=== PATIENT | female | born 1960 | race Caucasian/White ===

== ENCOUNTER 2017-10-31 13:26 | Inpatient (IN) | payer MEDICARE, MEDICAID ==
[2017-10-31] VITALS (33 sets, daily range): BP systolic 92–127; BP diastolic 51–78
[~2017-10-31] VITALS: Ht 154.9 cm; Wt 114.0 kg
[~2017-10-31 13:26] MED LIST: ASPIRIN81 MG PO; BENICAR HCT1 TA1 OR; BENICAR HCT1 TA1 PO; BENICAR40 MG OR; BENICAR40 MG PO; BP MED; CEPHALEXIN500 MG PO; CHOLESTEROL MED; COMBIVENT IN; CRESTOR10 MG PO; CRESTOR5 MG OR; CRESTOR5 MG PO; HEART MED; HYDROCHLOROT12.5 MG PO; LOPRESSOR25 MG PO; MELOXICAM7.5 MG PO; METOPROL TAR25 M1 OR; METOPROLOL PO; NAPROSYN500 MG OR; NAPROXEN500 MG OR; NITROGLYCER0.4 MG SL; NYSTATIN100000 M4 TOP; ORPHENADRINE C100 M1 PO; PERCOCET 5/325M1 TAB PO; POTASSIUM GLUC595 MG PO; PROVENTIL HFA INH; TESSALON PER100 MG PO; ULTRAM50 MG PO
--- NOTE | 2017-10-31 13:46 | NUR ---
PT REPORTS RAPID HEART RATE AND SOB STARTING AT 1210. PT AMBULATED TO ROOM 8 WITH A STEADY GAIT. EKG COMPLETED AND PT RHYTHM IS SVT AT 168. PER PT THIS HAS HAPPENED IN THE PAST. IV SITE INITIATED AND 6 MG OF ADENOSINE GIVEN RAPID IVP. PT TOLERATED WELL AND IS SHOWING SINUS TACHYCARDIA AT A RATE OF 106. PT RESTING COMFORTABLY IN STRETECHER WITH HOB ELEVATED. PT AWARE OF NEED FOR LAB TESTS AND OBSERVING. PT DENIES ANY NEEDS AT THIS TIME. CALL SWEENEY WITHIN REACH.
--- NOTE | 2017-10-31 13:50 | NUR ---
PT TO ROOM FOR EXAM
--- NOTE | 2017-10-31 14:15 | NUR ---
BP 83/54. PER PT SHE TOOK EXTRA DOSE OF METROPROLOL 25 MG AT 1230 DUE TO RAPID HEART RATE. NOTIFIED.
[2017-10-31 14:33] LABS: HEMATOCRIT 42.2 % (37.0-47.0); HEMOGLOBIN 13.8 g/dl (12.0-16.0); IMMATURE GRANULOCYTES 0.3 % (0.0-1.0); MEAN CELL VOLUME 99.1 fL CALC (80.0-100.0); MEAN CORPUSCULAR HGB 32.4 pG CALC (26.0-32.0); MEAN CORPUSCULAR HGB CONC 32.7 g/L CALC (32.0-36.0); NEUT# 4.13 thou/uL (2.00-7.15); RED BLOOD COUNT 4.26 mill/uL (4.20-5.60); RED CELL DISTRI WIDTH 12.6 % (11.5-15.5)
--- NOTE | 2017-10-31 14:45 | NUR ---
PT RESTING COMFORTABLY IN STRETCHER AND DENIES ANY PAIN, SOB OR DIZZINESS AT THIS TIME. BP 92/51. CALL SWEENEY WITHIN REACH.
[2017-10-31 14:55] LABS: ANION GAP 16 (6-22 (CALC)); BUN 18 mg/dL (7-17); BUN/CREATININE RATIO 16 (12-20 (CALC)); CARBON DIOXIDE 21 mmol/l (22-30); CHLORIDE 106 mmol/l (95-108); CREATININE 1.1 mg/dL (0.5-1.0); GFR 51 ML/MIN (>=60 (CALC)); GFR FOR AFR.AMER. > 60 ML/MIN (>=60 (CALC)); POTASSIUM 4.3 mmol/l (3.5-5.1); SODIUM 139 mmol/l (137-146)
--- NOTE | 2017-10-31 15:15 | NUR ---
PT CONTINUES TO BE HYPOTENSIVE. PER MD VERBAL ORDER, START CENTRAL LINE AND HAVE LEVOPHED READY.
--- NOTE | 2017-10-31 15:29 | NUR ---
CENTRAL LINE PLACED TO THE RIGHT IJ. PT TOLERATED WELL.
--- NOTE | 2017-10-31 15:41 | NUR ---
LEVOPHED INITIATED PER MD ORDER.
[2017-10-31] MEDS ORDERED: POTASSIUM99 MG PO (15:59)
[2017-10-31] MEDS ORDERED: PRAVASTATIN SOD20 MG PO (16:00)
--- NOTE | 2017-10-31 16:13 | NUR ---
SBAR PRINTED TO FLOOR
--- NOTE | 2017-10-31 16:30 | NUR ---
PT UPTO BEDISDE COMMODE AND DENIES ANY DIZZINESS AT THIS TIME. PT AWARE OF PLAN FOR ADMIT AND WAIT TIME. CALL SWEENEY WITHIN REACH.
--- NOTE | 2017-10-31 17:00 | NUR ---
REPORT GIVEN TO DINO SILVER.
--- NOTE | 2017-10-31 17:25 | NUR ---
PT ADMITTED TO ICU BED 1 VIA STRECTHER, PT STOOD OF STRECTHER ONTO STANDING SCALE WEIGHT OBTAINED THEN INTO BED, PT REPOSITIONED SELF FOR COMFORT, ADMISSION ASSESSMENT COMPLETED, SEE INTERVENTIONS, LUNGS CLEAR PT IS ADMITTED SMOKER, WITH PULSE OX 98% ON ROOM AIR, SKIN DRY AND SCALY BUT INTACT, TELE READING SR RATE IN THE 60-70'S, BP STABLE RIJ TLC INTACT WITH LEVOPHED INFUSING AT 8MCG (INTITATED IN ER) GOAL MAP>65, PT ALSO HAS SALINE LOCKS X 2, 22G IN LH, 20G LAC, ABD SOFT BS ACTIVE PT DENIES N/V STATES LAST BM THIS AM (NORMAL PER PT) DENIES DIFFICUTLY VOIDING, AWARE OF HAS NOT VOIDED SINCE ARRIVAL PT AWARE OF NEED FOR URINE SPECIMEN, ALL MONITORING EQUIPMENT EXPLAINED TO PATIENT PRIOR TO APPLICATION, CALL SWEENEY WITHIN REACH, SAFETY MEASURES INTRODUCED, WILL CONTINUE TO MONITOR
--- NOTE | 2017-10-31 17:25 | NUR ---
Admission Note Report Given to: NADEEM, ICU Transported by: Wheelchair X Stretcher Transported with: X Nurse Transporter X Patent IV X O2 X Business Lawyer
--- NOTE | 2017-10-31 18:08 | NUR ---
FAMILY MEMBERS AT BEDSIDE, LEVOPHED GTT CONTINUES AT DECREASED RATE WITH MAP MAINTAINED >65, CARDIAC DIET PROVIDED, CALL SWEENEY WITHIN REACH.
--- NOTE | 2017-10-31 18:56 | NUR ---
PT SITTING UP TALKING WITH FAMILY. PT IS ALERT AND ORIENTED X3. PERRLA. RESP ARE EVEN AND UNLABORED. NO DISTRESS NOTED. LUNGS ARE CLEAR AND DIMINISHED. HR REGULAR. SR 60-70 ON MONITOR. PULSES PALPABLE THROUGHOUT. NO EDEMA NOTED. BS ACTIVE. PT REPORTS A NORMAL BM EARLIER TODAY. #22 LEFT HAND AND #20 LAC BOTH ARE SALINE LOCKED. NO REDNESS OR EDEMA NOTED. RIGHT IJ TLC WITH LEVOPHED @ 4 INFUSING WITHOUT DIFFICULT. NO REDNESS OR EDEMA NOTED AT SITE. WILL CONTINUE TO MONITOR BP AND DECREASE LEVO NEEDED. WILL CONTINUE TO MONITOR.
--- NOTE | 2017-10-31 19:13 | NUR ---
DECREASED LEVOPHED TO 3MCG/MIN. VS WILL BE OBTAINED Q5 MINUTES. WILL CONTINUE TO MONITOR PT.
--- NOTE | 2017-10-31 20:15 | NUR ---
PT ASSISTED TO BATHROOM. UP WITHOUT DIZZINESS. UA OBTAINED. PT VOIDED 300CC CLEAR YELLOW URINE
--- NOTE | 2017-10-31 20:30 | NUR ---
LEVOPHED DECREASED TO 2MCG/ MIN. MAINTENANCE FLUIDS ORDERED DUE TO SLOWING RATE OF TITRATION. BP Q5 X3 THEN Q15 MIN. WILL CONTINUE TO MONITOR PT
--- NOTE | 2017-10-31 21:30 | NUR ---
PT ASSITED TO BATHROOM. PT VOIDED 600CC CLEAR YELLOW URINE.
[2017-10-31 21:33] LABS: URINE BILIRUBIN - DIPSTICK NEGATIVE (NEGATIVE); URINE BLOOD DIPSTICK NEGATIVE (NEGATIVE); URINE COLOR YELLOW; URINE GLUCOSE - DIPSTICK NEGATIVE (NEGATIVE); URINE KETONE NEGATIVE (NEGATIVE); URINE LEUK ESTERASE NEGATIVE (Negative); URINE NITRITE - DIPSTICK NEGATIVE (Negative); URINE PROTEIN - DIPSTICK NEGATIVE (NEG-TRACE); URINE SPECIFIC GRAVITY 1.015; URINE UROBILINOGEN - DIPSTICK 0.2 E.U./dL (0.2)
[2017-10-31 21:36] LABS: URINE CLARITY CLEAR
--- NOTE | 2017-10-31 22:20 | NUR ---
PT RESTING IN BED WITH EYES CLOSED. AROUSES EASILY TO VVERBAL STIMULI. DAUGHTER AT BEDSIDE. PT REMAINS SR ON MONITOR. LEVOPHED CONTINUES TO INFUSE AT 2MCG/MIN. WITH MAINTENANCE FULIDS AT KVO. WILL CONTINUE TO MONITOR
--- NOTE | 2017-10-31 22:39 | NUR ---
PT REMAINS ON Q15MIN VITALS. AUTOMATIC BP 86/51. RECHECKED AUTO BP 101/59. WILL CONTINUE TO MONITOR.
--- NOTE | 2017-10-31 23:25 | NUR ---
INCREASED LEVOPHED TO 4MCG/MIN. DUE TO BP 81/49. WILL CONTINUE TO MONITOR
--- NOTE | 2017-10-31 23:45 | NUR ---
BP NOW 121/66. WILL MAINTAIN LEVOPHED AT 4MCG/MIN AND CONTINUE TO MONITOR BP Q15 MINS.
[2017-11-01] VITALS (39 sets, daily range): BP systolic 84–133; BP diastolic 49–80
--- NOTE | 2017-11-01 | NUR ---
LAB INTO DRAW [place] LABS
--- NOTE | 2017-11-01 00:39 | NUR ---
PT ASSISTED TO BATHROOM TO VOID. PT VOIDED 700CC OF CLEAR YELLOW URINE.
--- NOTE | 2017-11-01 01:55 | NUR ---
PT RESTING IN BED WITH EYES CLOSED. RESP ARE EVEN AND UNLABORED. DAUGHTER IN ROOM. NO DISTRESS NOTED. WILL CONTINUE TO MONITOR
--- NOTE | 2017-11-01 04:02 | NUR ---
PT RESTING IN BED. DAUGHTER IN ROOM. RESP ARE EVEN AND UNLABORED. NO DISTRESS NOTED. WILL CONTINUE TO MONITOR.
--- NOTE | 2017-11-01 05:20 | NUR ---
TITRATED LEVOPHED TO 2MCG/MIN. WILL MONITOR BP
--- NOTE | 2017-11-01 05:43 | NUR ---
ASSISTED PT TO BATHRROM. PT REWQUESTED TO SIT UP IN CHAIR AT BEDSIDE. ASSISTANCE PROVIDED. PT REMAINS SR 70'S ON MONITOR. CALL LIGHT WITHIN REACH WILL CONTINUE TO MONITOR
--- NOTE | 2017-11-01 05:54 | NUR ---
LAB INTO DRAW AM LABS
--- NOTE | 2017-11-01 05:58 | NUR ---
PT SITITNG UP IN CHAIR AT BEDSIDE. NO DISTRESS NOTED. REMAINS SR ON MONITOR WILL CONTINUE TO MONITOR
[2017-11-01 06:44] LABS: BARBITURATES NEGATIVE (NEGATIVE); COCAINE NEGATIVE (NEGATIVE); METHADONE NEGATIVE (NEGATIVE); OXCYCODONE NEGATIVE (NEGATIVE); TETRAHYDROCANNABIONOL NEGATIVE (NEGATIVE); TRICYLIC ANTIDEPRESSANTS NEGATIVE (NEGATIVE)
--- NOTE | 2017-11-01 07:11 | NUR ---
pt awake up to recliner; no distress noted; pt offers no complaints; assessment completed at this time; pt alert and oriented; denies pain/ sob/ palpitations; resp even and unlabored; lungs clear/coarse right base; skin color wnl; ra; arnp cough noted; hr reg; pulses present; trace edema noted to ble; sr on monitor; abd soft/distended with bs present; no bm noted per tech writer; pt admits to voiding without difficulty; no urine to inspect at this time; #22 in lh flushed and patent; #20 in lac flushed and patent; TLC patent to RIJ with ns infusing at 20cc/hr and levophed gtt infusing at 2mcg/min; all lumens flushed and brisk blood return noted; no redness or edema noted at sites; plan of care/ am meds explained; call light within reach; will continue to monitor
--- NOTE | 2017-11-01 08:00 | NUR ---
awake in recliner; offers no complaints; daughter at bedside; plan of care including weaning levophed explained; iv patent; call light within reach; will continue to monitor
--- NOTE | 2017-11-01 08:30 | NUR ---
Dr Caputo at bedside to assess pt and discuss plan of care; levophed gtt weaned at this time; bp stable; will continue to monitor
--- NOTE | 2017-11-01 10:15 | NUR ---
awake; up to recliner; no distress noted; sr on monitor; daughter at bedside; bath per self; iv's saline locked; pt deny needs/concerns; call light within reach; will continue to monitor
[2017-11-01 10:22] LABS: CHOLESTEROL HDL RATIO 3.8 (<4.4 (CALC))
--- NOTE | 2017-11-01 12:04 | NUR ---
awake; offers no complaints; no distress noted; resp even and unlabored; pt denies chest pain or dizziness; iv's intact; sr on monitor; family members x2 at bedside; call light within reach; will continue to monitor
--- NOTE | 2017-11-01 12:25 | NUR ---
Dr Caputo at bedside; pt expresses wishes to go home; bp's reviewed Dr Caputo and pt; will continue to monitor
--- NOTE | 2017-11-01 12:30 | NUR ---
this check writer salesperson accompanied pt to ambulate within the unit; no dizziness/ lightheadedness/chest pain or palpitations noted; bp after ambulation 127/80, sr 64 on monitor; MD updated; will continue to monitor
--- NOTE | 2017-11-01 12:40 | NUR ---
IV'S REMOVED WITH CATHETER TIPS INTACT; RIJ SITE DISCONTINUED; PRESSURE APPLIED FOR >5 MINUTES; NO ACTIVE BLEEDING AT SITE NOTED; NO CREPITUS NOTED;
--- NOTE | 2017-11-01 13:12 | NUR ---
discharge instructions reviewed in detail with pt and family; pt informed to obtained and blood pressure maching in order to check bp and hr prior to taking home medication; pt admits to living with son; son also states understanding of medication changes; will continue to monitor
--- NOTE | 2017-11-01 13:16 | NUR ---
Discharge instructions given. Patient verbalizes understanding of same. Discharged in stable condition via Wheelchair to Home with family. All belongings sent with pt.
== END 2017-11-01 13:16 | disposition home or self-care (01) | DRG 312 ==
LOC: ED 13:26 → ED-I 16:01 → ED 16:16 → ICU 16:17
PROVIDERS: Family Medicine; Hospitalist; Internal Medicine; ADMIT Internal Medicine; ATTEND Internal Medicine
PROC: 02HV33Z Insertion of Infusion Device into Superior Vena Cava, Percutaneous Approach (ICD-10-PCS; principal; 2017-10-31)
DX: I95.2 Hypotension due to drugs (principal); I47.1 Supraventricular tachycardia; T46.2X5A Adverse effect of other antidysrhythmic drugs, initial encounter; I10 Essential (primary) hypertension; I48.91 Unspecified atrial fibrillation; E11.9 Type 2 diabetes mellitus without complications; J44.9 Chronic obstructive pulmonary disease, unspecified; F17.210 Nicotine dependence, cigarettes, uncomplicated

== ENCOUNTER 2017-11-01 18:34 | Inpatient (IN) | payer MEDICARE, MEDICAID ==
[~2017-11-01] VITALS: Ht 154.9 cm; Wt 114.0 kg
[~2017-11-01 18:34] MED LIST changes: +POTASSIUM99 MG PO; +PRAVASTATIN SOD20 MG PO
--- NOTE | 2017-11-01 18:34 | NUR ---
PT TO ROOM 15 VIA WC FOR TACHYCARDIA
--- NOTE | 2017-11-01 19:00 | NUR ---
PT ON [facility] MONITOR SHOWING SVT RATE 180. PT DENIES CHEST PAIN, DYSPNEA. NO DIAPHORESIS NOTED. STATES THAT SHE WAS RELEASED HERE THIS A.M. FOR SAME THING. PT IS SUPPOSED TO FOLLOW UP WITH [place] [employer] AT A LATER DATE.
[2017-11-01 19:48] LABS: IMMATURE GRANULOCYTES 0.3 % (0.0-1.0); MEAN CELL VOLUME 95.2 fL CALC (80.0-100.0); MEAN CORPUSCULAR HGB 32.1 pG CALC (26.0-32.0); MEAN CORPUSCULAR HGB CONC 33.7 g/L CALC (32.0-36.0); NEUT# 5.93 thou/uL (2.00-7.15); RED BLOOD COUNT 4.99 mill/uL (4.20-5.60); RED CELL DISTRI WIDTH 12.4 % (11.5-15.5)
[2017-11-01 20:44] LABS: HEMATOCRIT 47.5 % (37.0-47.0)
[2017-11-01 21:06] LABS: ALBUMIN 3.9 g/dL (3.2-5.0); ALKALINE PHOSPHATASE 67 u/l (38-126); ANION GAP 16 (6-22 (CALC)); BILIRUBIN, TOTAL 0.4 mg/dL (0.0-1.4); BUN 13 mg/dL (7-17); BUN/CREATININE RATIO 14 (12-20 (CALC)); CARBON DIOXIDE 24 mmol/l (22-30); CHLORIDE 105 mmol/l (95-108); CREATININE 0.9 mg/dL (0.5-1.0); GFR > 60 ML/MIN (>=60 (CALC)); GFR FOR AFR.AMER. > 60 ML/MIN (>=60 (CALC)); POTASSIUM 3.9 mmol/l (3.5-5.1); SGOT/AST 19 u/l (14-36); SGPT/ALT 35 u/l (9-52); SODIUM 140 mmol/l (137-146); TOTAL PROTEIN 6.8 g/dL (6.3-8.2)
--- NOTE | 2017-11-01 22:20 | NUR ---
TELEMETRY BOX PLACED ON PT. ADVISED THAT [facility]SON REPORT CAN BE CALLED TO FLOOR THAT SHE WILL BE RTASPORTED TO ROOM. AWAITING FLOOR RN TO RETURN CALL FOR REPORT.
--- NOTE | 2017-11-01 22:30 | NUR ---
PT TO ROOM 282 VIA STRETCHER ACCOMPANIED BY ER STAFF. PT ABLE TO AMBULATE WITHOUT DIFFICULTY. ADMISSION ASSESMENT COMPLETED AT THIS TIME. FAMILY IN ROOM. TELE IN PLACE. REPORT GIVEN TO CECI ECHEVARRIA TO ASSUME CARE.
--- NOTE | 2017-11-01 22:30 | NUR ---
REPORT CALLED TO CECI ON MED/SURG. TELEMETRY BOX IN PLACE AND WILL TRANSPORT TO FLOOR VIA [place].
[2017-11-01 22:57] VITALS: BP 115/67
--- NOTE | 2017-11-02 00:05 | NUR ---
PT RESTING IN BED WITH ISMA DUGGAN AT BEDSIDE OBTAINING VS;BP 122/73 HR 82;TELE MONITOR IN PLACE;PT DENIES ANY PAIN OR NEEDS AT THIS TIME;ENCOURAGED TO CALL FOR ASSISTANCE IF NEEDED;WILL CONTINUE TO MONITOR
[2017-11-02 00:07] VITALS: BP 122/73
[2017-11-02 04:56] VITALS: BP 110/68
--- NOTE | 2017-11-02 05:45 | NUR ---
PT RESTING IN BED WITH DAUGHTER AT BEDSIDE;TELE MONITOR IN PLACE;PT DENIES ANY CHEST DISCOMFORTS;HR 71;RESPIRATIONS EVEN AND UNLABORED ON RA;FRESH COFFEE PROVIDED PER REQUEST;PT ENCOURAGED TO CALL FOR ASSISTANCE IF NEEDED;WILL CONTINUE TO MONITOR
--- NOTE | 2017-11-02 06:35 | NUR ---
PT RETURNED FROM XRAY IN STABLE CONDITION
--- NOTE | 2017-11-02 07:35 | NUR ---
PT ALERT AND ORIENTED SITITNG UP INBED WITH FAMILY MEMBER AT BEDSIDE, OFFERS NO NEW COMPLAINTS, EDUCTAED REGARDING MEDICATIONS ADMINSITERED UPON ARRIVAL TO HOSPITAL FOR SVT (HERE RECENTLY FOR SAME DX AND MEDICATED AT THAT TIME WELL) OFFERS NO NEW COMPLAINTS, PT AWARE OF POSSIBLE CARDIOLOGY CONSULT STATES SHE SAW LONG TIME AGO WHEN THIS AHPPENED BEFORE BUT ADMITS SHE DID NOT FOLLOW WITHHIM SHE SHOUD HAVE, COMFORT MEASURES PROVIDED, SAFETY MEASURES REINFORCED, CALL SWEENEY WITHIN REACH
--- NOTE | 2017-11-02 07:35 | NUR ---
PT ALERT AND ORIENTED, RESTING IN BED COMPAINING OF STOMACH DISCOMFORT, STATING THAT "THAT BABY ASPIRIN THEY GIVING ME TEARS MY STOMACH UP" PT STATES SHE TAKES SOMETHING AT HOME FOR ACID REFLUX, EDUCATED THAT SHE WAS GIVEN THIS MEDICATION LAST PM AND THAT SHE IS SCHEDULED TO GET IT AGAIN THIS AM, WILL NOTIFY MD OF COMPLAINTS OF INDIGESTION AND ABD DISCOMFORT ON AM ROUNDS, ALSO STATES THAT SHE DON'T EAT ALL THIS GREASY FOOD AT HOME IN REFERENCE TO MEALS FROM DIETARY, DIETARY NOTIFIED TO GO OVER DIET CHOICES FOR MEALS, AM ASSESSMENT COMPLETED SEE INTERVENTIONS, COMFORT MEASURES PROVIDED, WILL CONTINUE TO MONITOR.
--- NOTE | 2017-11-02 09:15 | NUR ---
DIETARY AT BEDSIDE FOR DIET CHOICES AND OVERHEARD PT ASKING ABOUT GETTING FRIED CHICKEN. DIET CHOICES COMPLETED, PT MEDICATED EARLIER FOR INDIGESTON AND ABD DISCOMFORT, CALL SWEENEY WITHIN REACH.
--- NOTE | 2017-11-02 10:22 | NUR ---
JANINA WHALEY AT BEDSIDE TO SEE PT
--- NOTE | 2017-11-02 10:27 | NUR ---
PT RESTING IN TO SEE PT EARLIER, PT AND FAMILY AWARE OF CARDIOLOGY CONSULT WITH , TELE REMAINS IN PLACE NO ARRYTHMIAS NOTED PER ER. CALL SWEENEY WITHINR EAC, WILL CONTINUE TO MONITOR.
[2017-11-02 11:00] VITALS: BP 95/61
--- NOTE | 2017-11-02 13:49 | NUR ---
PT RESTING SITTIN UP IN BED, OFFERS NO NEW COMPLAINTS, CALL SWEENEY WITHIN REACH, FAMILY MEMBER REMAINS AT BEDSIDE
--- NOTE | 2017-11-02 14:00 | NUR ---
CASE MGMT AT BEDSIDE, OFFERS NO NEW COMPLAINTS,FMAILY AT BEDSIDE WELL, CALL SWEENEY WITHIN REACH
[2017-11-02 16:00] VITALS: BP 110/51
--- NOTE | 2017-11-02 17:01 | NUR ---
pt showered with family assist, tolerated well, back in bed, monitoring equipment reapplied at this time
[2017-11-02 19:25] VITALS: BP 118/64
--- NOTE | 2017-11-02 19:27 | NUR ---
PT SITTING IN BED ON TELEPHONE AFTER HANGING UP. INTRODUCED SELF TO PT. PT A+Ox3 NO SIGNS OF DISTRESS NOTED, RESP EVEN AND UNLABORED. ASSESSMENT COMPLETED AT THIS TIME. WARM PRUNE JUICE PROVIDED, PT VOICES NO NEEDS AT THIS TIME. CALL LIGHT IN REACH,CONTINUE TO MONITOR.
[2017-11-02 23:28] VITALS: BP 109/69
--- NOTE | 2017-11-03 | NUR ---
VITALS OBTAINED, NO SIGNS OF DISTRESS NOTED, RESP EVEN AND UNLABORED. PT VOICES NO NEEDS OR COMPLAINTS AT THIS TIME. CALL LIGHT IN REACH,CONTINUE TO MONITOR.
--- NOTE | 2017-11-03 02:27 | NUR ---
RECIEVED CALL FROM ER THAT PATIENT HR AT 37-RESPONDED TO PAIENT ROOM AND PATIENT SLEEPING-EASY TO AROUSE AND HR UP TO THE 60'S. O2 SATS WNL. NO COMPLAINTS AT THIS TIME. CONFIRMED WITH ER THAT PATIENT HR IS UP IN THE 60'S AT THIS TIME. CALL LIGHT IN REACH. WILL CONT TO MONITOR.
[2017-11-03 05:51] VITALS: BP 123/68
[2017-11-03 06:27] LABS: HEMATOCRIT 41.8 % (37.0-47.0); HEMOGLOBIN 14.3 g/dl (12.0-16.0); MEAN CELL VOLUME 94.4 fL CALC (80.0-100.0); MEAN CORPUSCULAR HGB 32.3 pG CALC (26.0-32.0); MEAN CORPUSCULAR HGB CONC 34.2 g/L CALC (32.0-36.0); RED BLOOD COUNT 4.43 mill/uL (4.20-5.60); RED CELL DISTRI WIDTH 12.2 % (11.5-15.5)
[2017-11-03 06:37] LABS: POTASSIUM 4.4 mmol/l (3.5-5.1)
--- NOTE | 2017-11-03 07:00 | NUR ---
RECEIVED BEDSIDE REPORT FROM RADHA ECHEVARRIA. AMBULATING TO BATHROOM WITH STEADY GAIT. RESPS EVEN AND UNLABORED ON ROOM AIR, TELE MONITOR IN PLACE. DENIES PAIN OR DISCOMFORT. PLAN OF CARE DISCUSSED, SAFETY PRECAUTIONS REINFORCED. BED IN LOWEST POSITION WITH WHEELS LOCKED. CALL LIGHT WITHIN REACH. ENCOURAGED PT TO CALL FOR ANY NEEDS.
[2017-11-03 07:35] VITALS: BP 125/50
--- NOTE | 2017-11-03 08:15 | NUR ---
DR DAVENPORT IN WITH PT, NEW ORDERS RECEIVED.
--- NOTE | 2017-11-03 09:20 | NUR ---
DR MORRIS IN WITH PT, NEW ORDERS RECEIVED.
[2017-11-03 11:00] VITALS: BP 101/59
--- NOTE | 2017-11-03 12:00 | NUR ---
IN HIGH FOWLERS EATING LUNCH, VISITORS AT BEDSIDE. RESPS EVEN AND UNLABORED ON O2 VIA NC, TELE MONITOR IN PLACE. DENIES PAIN OR DISCOMFORT. CALL LIGHT WITHIN REACH. ENCOURAGED PT AND VISITORS TO CALL FOR ANY NEEDS.
[2017-11-03] MEDS ORDERED: MEDDOSEPAK PO (12:45)
--- NOTE | 2017-11-03 13:50 | NUR ---
IV site discontinued, cath intact. No edema , no redness, voices no discomfort.
--- NOTE | 2017-11-03 13:55 | NUR ---
Discharge instructions given. Patient verbalizes understanding of same. Discharged in stable condition via Wheelchair to Home with family. All belongings sent with pt.
== END 2017-11-03 13:54 | disposition home or self-care (01) | DRG 309 ==
LOC: ED 18:34 → ED-I 21:15 → ED 21:29 → MS2 21:30
PROVIDERS: Emergency Medicine; Nurse Practitioner Family; ADMIT Internal Medicine; ATTEND Internal Medicine
DX: I47.1 Supraventricular tachycardia (principal); J44.1 Chronic obstructive pulmonary disease with (acute) exacerbation; I95.9 Hypotension, unspecified; Z68.42 Body mass index [BMI] 45.0-49.9, adult; I48.0 Paroxysmal atrial fibrillation; I10 Essential (primary) hypertension; F17.210 Nicotine dependence, cigarettes, uncomplicated; E78.5 Hyperlipidemia, unspecified; R73.03 Prediabetes; E66.9 Obesity, unspecified; G47.33 Obstructive sleep apnea (adult) (pediatric)
CPT/HCPCS: G0378

== ENCOUNTER 2021-06-04 14:54 | Emergency (ER) | payer MEDICARE, MEDICAID ==
[~2021-06-04] VITALS: Ht 154.9 cm; Wt 111.4 kg
[~2021-06-04 14:54] MED LIST changes: +ALENDRONATE SOD70 MG PO; +CALCIUM250 M1; +FLOVENT DI50 MCG/BLI; +LASIX 20 MG TAB20 MG PO; +MAGNESIUM30 MG PO; +MEDDOSEPAK PO; +METFORMIN HCL1000 MG PO; +OMEPRAZOLE DR40 MG; +TENORMIN PO; +VENTOLIN HFA108 MCG; +VITAMIN D325 MCG
[2021-06-04 17:08] LABS: IMMATURE GRANULOCYTES 0.9 % (0.0-5.0); MEAN CELL VOLUME 98.6 fL CALC (80.0-100.0); MEAN CORPUSCULAR HGB 32.5 pG CALC (26.0-32.0); NEUT# 3.1 thou/uL (2.00-7.15); RED BLOOD COUNT 3.57 mill/uL (4.20-5.60); RED CELL DISTRI WIDTH 15.3 % (11.5-15.5)
[2021-06-04 17:22] LABS: ALBUMIN 4.2 g/dL (3.2-5.0); BILIRUBIN, TOTAL 0.5 mg/dL (0.0-1.4); BUN 9 mg/dL (7-17); BUN/CREATININE RATIO 10 (12-20 (CALC)); CARBON DIOXIDE 23 mmol/l (22-30); CHLORIDE 101 mmol/l (95-108); CREATININE 0.9 mg/dL (0.5-1.0); GFR > 60 ML/MIN (>=60 (CALC)); GFR FOR AFR.AMER. > 60 ML/MIN (>=60 (CALC)); SGOT/AST 27 u/l (14-36); SODIUM 136 mmol/l (137-146); TOTAL PROTEIN 7.9 g/dL (6.3-8.2)
[2021-06-04 17:24] LABS: HEMATOCRIT 35.2 % (37.0-47.0); HEMOGLOBIN 11.6 g/dl (12.0-16.0)
[2021-06-04 17:26] LABS: ALKALINE PHOSPHATASE 98 u/l (38-126); ANION GAP 15 (6-22 (CALC)); POTASSIUM 2.8 mmol/l (3.5-5.1)
[2021-06-04 18:01] VITALS: BP 133/78
[2021-06-04] MEDS ORDERED: K-DUR/KLOR-CON20 MEQ PO (19:04)
[2021-06-04] MEDS ORDERED: ZOFRAN4 MG/TAB SL (19:04)
== END 2021-06-04 19:14 | disposition left against medical advice (07) ==
LOC: ED 14:54
PROVIDERS: Physician Assistant Surgical
DX: R11.10 Vomiting, unspecified (principal); R19.7 Diarrhea, unspecified; E87.6 Hypokalemia; C50.912 Malignant neoplasm of unspecified site of left female breast; E11.9 Type 2 diabetes mellitus without complications; J44.9 Chronic obstructive pulmonary disease, unspecified; E78.5 Hyperlipidemia, unspecified; Z91.19 Patient's noncompliance with other medical treatment and regimen; Z79.899 Other long term (current) drug therapy

== ENCOUNTER 2021-06-05 09:33 | Emergency (ER) | payer MEDICARE, MEDICAID ==
[~2021-06-05] VITALS: Ht 154.9 cm; Wt 110.0 kg
[~2021-06-05 09:33] MED LIST changes: +K-DUR/KLOR-CON20 MEQ PO; +ZOFRAN4 MG/TAB SL
[2021-06-05 10:58] LABS: HEMATOCRIT 33.8 % (37.0-47.0); HEMOGLOBIN 11.2 g/dl (12.0-16.0); IMMATURE GRANULOCYTES 1.1 % (0.0-5.0); MEAN CELL VOLUME 99.4 fL CALC (80.0-100.0); MEAN CORPUSCULAR HGB 32.9 pG CALC (26.0-32.0); MEAN CORPUSCULAR HGB CONC 33.1 g/dL CAL (32.0-36.0); NEUT# 5.44 thou/uL (2.00-7.15); RED BLOOD COUNT 3.4 mill/uL (4.20-5.60); RED CELL DISTRI WIDTH 15.5 % (11.5-15.5)
[2021-06-05 11:25] LABS: URINE BLOOD DIPSTICK NEGATIVE (NEGATIVE); URINE COLOR YELLOW; URINE GLUCOSE - DIPSTICK NEGATIVE (NEGATIVE); URINE KETONE TRACE mg/dL (NEGATIVE); URINE LEUK ESTERASE NEGATIVE (NEGATIVE); URINE PH 6.5 (4.5-8.0); URINE PROTEIN - DIPSTICK TRACE mg/dL (NEG-TRACE); URINE SPECIFIC GRAVITY 1.015; URINE UROBILINOGEN - DIPSTICK 0.2 E.U./dL (0.2)
[2021-06-05 11:27] LABS: URINE BILIRUBIN - DIPSTICK SMALL (NEGATIVE); URINE NITRITE - DIPSTICK NEGATIVE (Negative)
[2021-06-05 11:33] LABS: ALKALINE PHOSPHATASE 95 u/l (38-126); ANION GAP 13 (6-22 (CALC)); BILIRUBIN, TOTAL 0.5 mg/dL (0.0-1.4); BUN 6 mg/dL (7-17); BUN/CREATININE RATIO 8 (12-20 (CALC)); CARBON DIOXIDE 22 mmol/l (22-30); CHLORIDE 103 mmol/l (95-108); CREATININE 0.7 mg/dL (0.5-1.0); GFR > 60 ML/MIN (>=60 (CALC)); GFR FOR AFR.AMER. > 60 ML/MIN (>=60 (CALC)); MAGNESIUM 1.4 mg/dL (1.6-2.3); POTASSIUM 3.1 mmol/l (3.5-5.1); SGOT/AST 31 u/l (14-36); SODIUM 136 mmol/l (137-146); TOTAL PROTEIN 7.7 g/dL (6.3-8.2)
[2021-06-05 13:58] VITALS: BP 106/56
== END 2021-06-05 14:03 | disposition home or self-care (01) ==
LOC: ED 09:33
PROVIDERS: Family Medicine
DX: E87.6 Hypokalemia (principal); R11.2 Nausea with vomiting, unspecified; R19.7 Diarrhea, unspecified; I10 Essential (primary) hypertension; E11.9 Type 2 diabetes mellitus without complications; C50.912 Malignant neoplasm of unspecified site of left female breast; C77.9 Secondary and unspecified malignant neoplasm of lymph node, unspecified; J44.9 Chronic obstructive pulmonary disease, unspecified; E78.00 Pure hypercholesterolemia, unspecified; Z79.84 Long term (current) use of oral hypoglycemic drugs; Z79.899 Other long term (current) drug therapy
CPT/HCPCS: J3475

== ENCOUNTER 2021-06-24 07:44 | Observation (INO) | payer MEDICARE, MEDICAID ==
[~2021-06-24] VITALS: Ht 154.9 cm; Wt 108.0 kg
--- NOTE | 2021-06-24 07:44 | NUR ---
PT TO ROOM 9 VIA ABLE TO STAND AND TRANSFER FROM TO STRETCHER WITHOUT ASSIST.
[2021-06-24 09:20] LABS: HEMATOCRIT 37.1 % (37.0-47.0); HEMOGLOBIN 11.9 g/dl (12.0-16.0); IMMATURE GRANULOCYTES 0.1 % (0.0-5.0); MEAN CELL VOLUME 104.5 fL CALC (80.0-100.0); MEAN CORPUSCULAR HGB 33.5 pG CALC (26.0-32.0); MEAN CORPUSCULAR HGB CONC 32.1 g/dL CAL (32.0-36.0); NEUT# 3.69 thou/uL (2.00-7.15); RED BLOOD COUNT 3.55 mill/uL (4.20-5.60); RED CELL DISTRI WIDTH 16.7 % (11.5-15.5)
[2021-06-24 09:45] LABS: ALKALINE PHOSPHATASE 69 u/l (38-126); BUN 15 mg/dL (7-17); BUN/CREATININE RATIO 20 (12-20 (CALC)); CHLORIDE 104 mmol/l (95-108); CREATININE 0.7 mg/dL (0.5-1.0); ETHYL ALCOHOL 0 mg/dl (0-30); GFR > 60 ML/MIN (>=60 (CALC)); GFR FOR AFR.AMER. > 60 ML/MIN (>=60 (CALC)); POTASSIUM 4.2 mmol/l (3.5-5.1); SGOT/AST 37 u/l (14-36); SODIUM 137 mmol/l (137-146); TOTAL PROTEIN 7.6 g/dL (6.3-8.2)
[2021-06-24 09:48] LABS: ANION GAP 14 (6-22 (CALC)); BILIRUBIN, TOTAL 0.6 mg/dL (0.0-1.4); CARBON DIOXIDE 23 mmol/l (22-30)
[2021-06-24 09:56] LABS: MYOGLOBIN 23 ng/mL (0 - 62)
--- NOTE | 2021-06-24 10:36 | NUR ---
NEOSYNEPHRINE IV STARTED. PT EDUCATED ON VASOCONSTRICTOR. PT VERBALIZES UNDERSTANDING. BP 97/61
--- NOTE | 2021-06-24 11:10 | NUR ---
MD AT BEDSIDE. PT UNCERTAIN ABOUT BEING ADMITTED. DISCUSSED RISKS AND BENEFITS OF ADMISSION. ORDER TO STOP NEOSYNEPHRINE AT THIS TIME AND OBSERVE BP. 120/68BP AT THIS TIME. SNACK PROVIDED
--- NOTE | 2021-06-24 11:16 | NUR ---
BP 96/60 WITH IV DRIP STOPPED. NOTIFIED. MD ADVISED TO RESTART IV.
--- NOTE | 2021-06-24 11:30 | NUR ---
NOTIFIED MD OF BP. NO NEOSYNEPHRINE RESTARTED AT THIS TIME. MD AWARE AND AGREEABLE TO OBSERVE BP AT THIS TIME X1 HR. PT IN AGREEMENT.
[2021-06-24 12:53] VITALS: BP 100/60
== END 2021-06-24 13:12 | disposition home or self-care (01) ==
LOC: ED 07:44 → ED-I 10:38 → ED 10:44 → ED-I 10:49
PROVIDERS: Emergency Medicine; ADMIT Hospitalist; ATTEND Hospitalist
DX: I47.1 Supraventricular tachycardia (principal); I95.9 Hypotension, unspecified; I10 Essential (primary) hypertension; E11.9 Type 2 diabetes mellitus without complications; C50.912 Malignant neoplasm of unspecified site of left female breast; C77.9 Secondary and unspecified malignant neoplasm of lymph node, unspecified; J44.9 Chronic obstructive pulmonary disease, unspecified; I48.91 Unspecified atrial fibrillation; F17.200 Nicotine dependence, unspecified, uncomplicated; Z95.828 Presence of other vascular implants and grafts; Z79.899 Other long term (current) drug therapy; Z79.84 Long term (current) use of oral hypoglycemic drugs

== ENCOUNTER 2021-09-30 07:27 | Day surgery (SDC) | payer MEDICARE, MEDICAID ==
[~2021-09-30] VITALS: Ht 154.9 cm; Wt 102.1 kg
[~2021-09-30 07:27] MED LIST changes: -CALCIUM250 M1; +CALCIUM250 M1 PO; +D32000 UNI1 PO; +FLECAINIDE50 MG PO; -FLOVENT DI50 MCG/BLI; +FLOVENT DI50 MCG/BLI IN; +K-TAB20 MEQ PO; +PROBIOTIC 1-2501 CAP PO; +SLOW-MAG PO; -VENTOLIN HFA108 MCG; +VENTOLIN HFA108 MCG IN; -VITAMIN D325 MCG; +VITAMIN D325 MCG PO
[2021-09-30] MEDS ORDERED: PERCOCET 5/321 COMBO PO (09:38)
[2021-09-30 12:41] VITALS: BP 113/60
== END 2021-09-30 10:40 | disposition home or self-care (01) ==
LOC: ORM 07:27
PROVIDERS: ATTEND Surgery
PROC: 0JBF0ZZ Excision of Left Upper Arm Subcutaneous Tissue and Fascia, Open Approach (ICD-10-PCS; principal; 2021-09-30)
DX: M79.89 Other specified soft tissue disorders (principal); I10 Essential (primary) hypertension; E11.9 Type 2 diabetes mellitus without complications; J44.9 Chronic obstructive pulmonary disease, unspecified; E78.5 Hyperlipidemia, unspecified; K21.9 Gastro-esophageal reflux disease without esophagitis; E66.9 Obesity, unspecified; F17.200 Nicotine dependence, unspecified, uncomplicated; Z85.3 Personal history of malignant neoplasm of breast; Z92.21 Personal history of antineoplastic chemotherapy

== ENCOUNTER 2021-11-16 12:25 | Emergency (ER) | payer MEDICARE, MEDICAID ==
[~2021-11-16] VITALS: Ht 154.9 cm; Wt 101.0 kg
[~2021-11-16 12:25] MED LIST changes: +PERCOCET 5/321 COMBO PO
[2021-11-16 13:22] VITALS: BP 129/66
[2021-11-16 13:30] VITALS: BP 122/61
[2021-11-16 13:45] VITALS: BP 120/60
[2021-11-16 13:47] LABS: HEMATOCRIT 39.2 % (37.0-47.0); IMMATURE GRANULOCYTES 0.1 % (0.0-5.0); MEAN CELL VOLUME 108.6 fL CALC (80.0-100.0); MEAN CORPUSCULAR HGB CONC 33.2 g/dL CAL (32.0-36.0); NEUT# 4.39 thou/uL (2.00-7.15); RED BLOOD COUNT 3.61 mill/uL (4.20-5.60); RED CELL DISTRI WIDTH 12.9 % (11.5-15.5)
[2021-11-16 14:00] VITALS: BP 113/60
[2021-11-16 14:05] LABS: ALBUMIN 4.4 g/dL (3.2-5.0); ALKALINE PHOSPHATASE 63 u/l (38-126); ANION GAP 15 (6-22 (CALC)); BILIRUBIN, TOTAL 0.3 mg/dL (0.0-1.4); BUN 13 mg/dL (7-17); BUN/CREATININE RATIO 18 (12-20 (CALC)); CARBON DIOXIDE 26 mmol/l (22-30); CHLORIDE 102 mmol/l (95-108); CREATININE 0.7 mg/dL (0.5-1.0); GFR > 60 ML/MIN (>=60 (CALC)); GFR FOR AFR.AMER. > 60 ML/MIN (>=60 (CALC)); POTASSIUM 4.1 mmol/l (3.5-5.1); SGOT/AST 19 u/l (14-36); SODIUM 139 mmol/l (137-146)
[2021-11-16 14:15] VITALS: BP 111/68
[2021-11-16 14:38] VITALS: BP 111/68
== END 2021-11-16 14:32 | disposition home or self-care (01) ==
LOC: ED 12:25
DX: R53.1 Weakness (principal); R42 Dizziness and giddiness; E11.9 Type 2 diabetes mellitus without complications; J44.9 Chronic obstructive pulmonary disease, unspecified; E78.00 Pure hypercholesterolemia, unspecified; I48.91 Unspecified atrial fibrillation; F17.200 Nicotine dependence, unspecified, uncomplicated; Z85.3 Personal history of malignant neoplasm of breast; Z79.84 Long term (current) use of oral hypoglycemic drugs

== ENCOUNTER 2022-04-07 06:55 | Day surgery (SDC) | payer MEDICARE, MEDICAID ==
[~2022-04-07] VITALS: Ht 154.9 cm; Wt 96.6 kg
[~2022-04-07 06:55] MED LIST changes: +ANASTROZOLE1 MG PO; +B COMPLE2 PO; +DIPHENOXYLATE H1 TAB PO; +FOLATE400 MCG PO; +GABAPENTIN100 MG PO; -OMEPRAZOLE DR40 MG; +OMEPRAZOLE DR40 MG PO; +VERAPAMIL120 M1 PO
[2022-04-07 09:53] VITALS: BP 121/74
== END 2022-04-07 09:41 | disposition home or self-care (01) ==
LOC: ENDO 06:55 → ORM 09:15 → ENDO 09:15 → ORM 10:00
PROVIDERS: ATTEND Surgery
PROC: 0DBN8ZX Excision of Sigmoid Colon, Via Natural or Artificial Opening Endoscopic, Diagnostic (ICD-10-PCS; principal; 2022-04-07)
DX: Z12.11 Encounter for screening for malignant neoplasm of colon (principal); D12.5 Benign neoplasm of sigmoid colon; K57.30 Diverticulosis of large intestine without perforation or abscess without bleeding; K64.8 Other hemorrhoids; K64.4 Residual hemorrhoidal skin tags; I10 Essential (primary) hypertension; C50.919 Malignant neoplasm of unspecified site of unspecified female breast; F17.200 Nicotine dependence, unspecified, uncomplicated; Z86.010 Personal history of colon polyps; Z86.16 Personal history of COVID-19

== ENCOUNTER 2024-03-24 09:16 | Emergency (ER) | payer MEDICARE, MEDICAID ==
[~2024-03-24] VITALS: Ht 154.9 cm; Wt 113.0 kg
[~2024-03-24 09:16] MED LIST changes: +METHOCARBAMOL500 MG PO; +NAPROXEN500 MG PO
[2024-03-24 09:25] VITALS: BP 149/74
[2024-03-24 10:12] LABS: BASO% 0.6 % (0-3); EOS% 1.7 % (0-8); HEMATOCRIT 43.9 % (37.0-47.0); HEMOGLOBIN 13.7 g/dl (12.0-16.0); IMMATURE GRANULOCYTES 0.2 % (0.0-5.0); LYMPH% 23.5 % (15-41); MEAN CORPUSCULAR HGB 28.7 pG CALC (26.0-32.0); MEAN CORPUSCULAR HGB CONC 31.2 g/dL CAL (32.0-36.0); NEUT# 6.28 thou/uL (2.00-7.15); RED BLOOD COUNT 4.77 mill/uL (4.20-5.60); RED CELL DISTRI WIDTH 17.2 % (11.5-15.5)
[2024-03-24 10:15] LABS: ALBUMIN 4.7 g/dL (3.2-5.0); BILIRUBIN, TOTAL 0.6 mg/dL (0.02-1.3); CREATININE 0.7 mg/dL (0.5-1.0); POTASSIUM 4.4 mmol/l (3.5-5.1); TOTAL PROTEIN 8.2 g/dL (6.3-8.2)
[2024-03-24] MEDS ORDERED: NAPROXEN500 MG PO (12:20)
[2024-03-24 12:37] VITALS: BP 132/73
[2024-03-24 12:43] VITALS: BP 132/73
== END 2024-03-24 12:43 | disposition home or self-care (01) ==
LOC: ED 09:16
PROVIDERS: Family Medicine
DX: M79.89 Other specified soft tissue disorders (principal); I10 Essential (primary) hypertension; E11.9 Type 2 diabetes mellitus without complications; I48.91 Unspecified atrial fibrillation; J44.9 Chronic obstructive pulmonary disease, unspecified; E78.00 Pure hypercholesterolemia, unspecified; F17.200 Nicotine dependence, unspecified, uncomplicated; Z79.84 Long term (current) use of oral hypoglycemic drugs; Z85.3 Personal history of malignant neoplasm of breast
CPT/HCPCS: Q9967